=== PATIENT | female | born 1990 | race Caucasian/White ===

== ENCOUNTER 2019-05-16 22:27 | Emergency (ER) | payer OTHER ==
[~2019-05-16] VITALS: Ht 170.2 cm; Wt 127.0 kg
[~2019-05-16 22:27] MED LIST: AUGMENTIN 875-1 EACH PO; CALCIO DEL MAR500 MG PO; KEFLEX500 MG PO; NEXPLANON68 MG SUB-Q; NORCO 5-325 TA1 EACH PO; PRENATAL-FOLIC1 EACH PO
[2019-05-16] MEDS ORDERED: ACETAMINOPHEN-1 EAC1 PO (23:16)
== END 2019-05-16 23:30 | disposition home or self-care (01) ==
LOC: ED 22:27
DX: S43.52XA Sprain of left acromioclavicular joint, initial encounter (principal); V19.9XXA Pedal cyclist (driver) (passenger) injured in unspecified traffic accident, initial encounter; F17.200 Nicotine dependence, unspecified, uncomplicated; Z79.899 Other long term (current) drug therapy
CPT/HCPCS: 73030; 99283

== ENCOUNTER 2021-06-22 08:55 | Emergency (ER) | payer OTHER ==
[~2021-06-22] VITALS: Ht 170.2 cm; Wt 99.8 kg
[~2021-06-22 08:55] MED LIST changes: +ACETAMINOPHEN-1 EAC1 PO
[2021-06-22] MEDS ORDERED: SERTRALINE HCL50 MG PO (10:40)
[2021-06-22] MEDS ORDERED: LEVOTHYROXINE25 MC1 PO (10:41)
[2021-06-22] MEDS ORDERED: FORTAMET500 MG PO (10:42)
[2021-06-22] MEDS ORDERED: CYCLOBENZAPRINE10 MG PO (10:42)
[2021-06-22] MEDS ORDERED: XALATAN2.5 ML OPTH (10:44)
[2021-06-22] MEDS ORDERED: ARTHRITIS PAIN100 GM TOP (10:45)
== END 2021-06-22 14:29 | disposition home or self-care (01) ==
LOC: ED 08:55
DX: U07.1 COVID-19 (principal); E11.9 Type 2 diabetes mellitus without complications; F17.200 Nicotine dependence, unspecified, uncomplicated; Z79.899 Other long term (current) drug therapy; Z79.84 Long term (current) use of oral hypoglycemic drugs
CPT/HCPCS: 71045; 80053; 81001; 83690; 83735; 84703; 85025; 96374; 99283-25; C9803; J1885; J7030; U0003